=== PATIENT | male | born 1950 | race Caucasian/White ===

== ENCOUNTER 2023-05-17 05:05 | Observation (INO) ==
--- NOTE | 2023-04-06 08:49 | PAT Medication Instructions ---
Medication Instructions Date of Service April 06, 2023 Home Medications amlodipine 5 mg tablet 5 mg PO QAM finasteride 5 mg tablet 5 mg PO QAM ibuprofen 200 mg tablet 800 mg PO Q6H PRN Pain lisinopril 40 mg tablet 40 mg PO QAM simvastatin 20 mg tablet 20 mg PO HS ASK your surgeon for instructions ibuprofen 200 mg tablet 800 mg PO Q6H PRN Pain DO NOT take the morning of surgery lisinopril 40 mg tablet 40 mg PO QAM Take morning of surgery With a small sip of water, OTHERWISE NOTHING TO EAT OR DRINK AFTER MIDNIGHT: amlodipine 5 mg tablet 5 mg PO QAM finasteride 5 mg tablet 5 mg PO QAM Take evening before surgery simvastatin 20 mg tablet 20 mg PO HS Other Notes If you have any questions please call us at [phone] or [phone] or [phone] or [phone]
--- NOTE | 2023-04-15 10:52 | Anesthesiology Consultation ---
Date of Service April 15, 2023 Assessment & Plan (1) Encounter for pre-operative examination: Plan - awaiting PCP pre-op clearance. Optimization form and PAT testing to be faxed to PCP. - anemia and hyponatremia noted. Patient to have pre-op clearance. Patient and surgeon's office made aware. - 3-4 alcoholic drinks daily. - patient reports upcoming planned dental procedure, he and his were made aware they need to further discuss this with surgeon's office prior to having dental procedure. They verbalized understanding and denied questions or concerns. Karen with surgeon's office also made aware. - procaine concern/reaction reported by pt: palpitations in childhood, denies any recurrence. - Outpatient joint assessment: Patient is currently scheduled for inpatient pathway. If re-evaluated pending system levels during current pandemic/surgeon requests outpatient pathway, patient is not recommended candidate for outpatient joint program from anesthesia standpoint. Chart Review Chart Review: Patient seen in Pre Admission Testing Teaching & Discussion Pre-Anesthesia Teaching/Discussion Notes: Instructed NPO after midnight before surgery, except medications with 15 cc of water. Medication instructions provided according to the PAT guidelines. History Surgery Operation Date: 05/17/23 09:20 Proposed Procedures p Right Total Hip Arthroplasty Anterior - Jones Waite, Height/Weight Height: 5 ft 9 in Weight: 84.822 kg Allergies Allergy/AdvReac Type Severity Reaction Status Date / Time procaine AdvReac Mild PALPITATION Verified 04/05/23 07:41 S Medications Home Medications Medication Instructions Recorded Confirmed Last Taken amlodipine 5 mg tablet 5 mg PO QAM 04/05/23 04/05/23 Unknown finasteride 5 mg tablet 5 mg PO QAM 04/05/23 04/05/23 Unknown ibuprofen 200 mg tablet 800 mg PO Q6H PRN Pain 04/05/23 04/05/23 Unknown lisinopril 40 mg tablet 40 mg PO QAM 04/05/23 04/05/23 Unknown simvastatin 20 mg tablet 20 mg PO HS 04/05/23 04/05/23 Unknown Past Medical History Medical History (Updated 04/15/23 @ 10:59 by Yohana Patel PA-C) BPH (benign prostatic hyperplasia) Hyperlipidemia Hypertension controlled, stable per pt Kidney stones hx of > passed on own Lumbar stenosis Patient denies h/o stroke, seizures, heart attack, heart failure, DM, blood clots or blood transfusions. Exercise / Class Metabolic Activity II 4-5 Yardwork/Stairs/Walk up hill (denies chest discomfort or shortness of breath with 1 FOS) Past Surgical History Surgical History (Updated 04/15/23 @ 11:03 by Yohana Patel PA-C) History of appendectomy History of colonoscopy with polypectomy History of lumbar fusion History of tooth extraction History of total hip arthroplasty left History of total knee replacement bilat Past Anesthesia History No Hx of Anesthesia Complications and No Family Hx of Anesthesia Complications History of PONV No Hx of PONV and No Hx of Motion Sickness Social History Smoking Status: Former smoker Do You Dip or Chew Tobacco: No Smoking End Date: 10 yrs ago Hx Alcohol Use: Yes alcohol intake frequency: 3 or more drinks per day Alcohol Intake Frequency Comment: 3-4 beers per day Hx Substance Use: No substance use type: does not use Review of Systems Snoring, denies witnessed apneas. Patient denies chest pain, shortness of breath, dyspnea on exertion, reflux, fever, chills, cough, wheezing, or palpitations. Physical Exam Vital Signs Vitals BP 144/72 P 63 TEMP 98.6 SP02 97% on RA RESP 18 Physical Full cervical extension range of motion without pain TMD 3.5 finger breadths Mallampati Score 2 Dentition: intact, denies chipped or loose teeth, caps/crowns, implants or bridges Lungs: normal respiratory effort. Good air movement, clear throughout to auscultation, no adventitious breath sounds Cardiac: regular rate and rhythm, no murmurs noted Carotid arteries: negative bruit bilat Lab Results Anesthesia Preop Results Results Anesthesia Widget: WBC 7.53 K/ul (4.8-10.8) 04/15/23 Hgb 10.4 g/dl (14.0-18.0) L 04/15/23 Hct 31.7 % (42.0-52.0) L 04/15/23 Plt 307 K/uL (130-400) 04/15/23 Na 129 mmol/L (136-145) L 04/15/23 K 4.3 mmol/L (3.5-5.1) 04/15/23 Cl 97 mmol/L (98-107) L 04/15/23 CO2 25 mmol/L (21-32) 04/15/23 BUN 13 mg/dl (6-23) 04/15/23 Creat 0.68 mg/dl (0.6-1.4) 04/15/23 Glucose Level 98 mg/dl (70-99(Fasting)) 04/15/23 PT 10.4 Seconds (9.0-12.0) 04/15/23 PTT 25.1 Seconds (21.0-31.0) 04/15/23 INR 0.9 (0.9-1.1) 04/15/23 Blood Type A Positive 04/15/23 Antibody Screen NEGATIVE 04/15/23 Testing Electrocardiogram Date: 04/15/23 Sinus rhythm with 1st degree AV block, rate 61 bpm Chest X-Ray Date: 04/15/23 Right lower lung airspace opacity may represent atelectasis, pneumonia, and/or aspiration. COVID-19 Risk Screen Screening Information COVID-19 Screen Date: 04/15/23 Exposure 21 Days Family/Household +COVID Last 21 Days: No Exposure 10 Days Any COVID Exposure Last 10 Days: No Symptoms Last 10 Days Experienced COVID Sx Last 10 Days: No + COVID 0-90 Days COVID + in Last 0-90 Days: No
--- NOTE | 2023-05-13 17:17 | History & Physical Report ---
Date of Service May 13, 2023 Assessment & Plan (1) Osteoarthritis of right hip: We will proceed with a right total hip arthroplasty. Postoperatively he will be started on aspirin for DVT prophylaxis and kept overnight in the hospital for postop medical management. He plans to go to physical therapy in [facility] upon discharge. History of Present Illness Chief Complaint: Osteoarthritis of the right hip. Primary Care Provider: Radha Juarez is a pleasant 72-year-old male who is been doing chronic increasing right hip and groin pain. X-rays and clinical examination been diagnostic for advanced osteoarthritis of the right hip. He has a history of a left hip replacement done by Dr. Aranda. After failing conservative treatment on his ri ght hip, he has elected proceed with a right anterior total of arthroplasty.. Allergies Allergy/AdvReac Type Severity Reaction Status Date / Time procaine AdvReac Mild PALPITATION Verified 04/05/23 07:41 S Home Medications Medication Instructions Recorded Confirmed Type amlodipine 5 mg tablet 5 mg PO QAM 04/05/23 04/05/23 History finasteride 5 mg tablet 5 mg PO QAM 04/05/23 04/05/23 History ibuprofen 200 mg tablet 800 mg PO Q6H PRN Pain 04/05/23 04/05/23 History lisinopril 40 mg tablet 40 mg PO QAM 04/05/23 04/05/23 History simvastatin 20 mg tablet 20 mg PO HS 04/05/23 04/05/23 History Past Med/Surg History Medical History BPH (benign prostatic hyperplasia) Hyperlipidemia Hypertension controlled, stable per pt Kidney stones hx of > passed on own Lumbar stenosis Surgical History History of appendectomy History of colonoscopy with polypectomy History of lumbar fusion History of tooth extraction History of total hip arthroplasty left History of total knee replacement bilat Social History Smoking Status: Former smoker Smoking End Date: 10 yrs ago; Second Hand Exposure: No; Do You Dip or Chew Tobacco: No; Tobacco Cessation Education Requested by Patient: No Hx Alcohol Use: Yes Hx Substance Use: No Preferred Language: Danish Communication Ability: Effective 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 Physical Exam On physical examination the right hip, has decreased range of motion. He has pain with forced internal/external rotation.. Constitutional WD/WN, vitals as above Eyes PERRL, conjunctivae normal, anicteric sclerae ENMT external ear and nose normal, oropharynx normal Neck trachea midline, no thyromegaly Respiratory normal respiratory effort, lungs clear to auscultation Cardiovascular RRR, no murmur, no edema Gastrointestinal (Abdomen) normal bowel sounds, soft, nontender, no hepatosplenomegaly Skin no rashes, warm and dry Psychiatric A+Ox3, euthymic affect Results & Data Results & Data Laboratory Results . Diagnostic Findings X-rays of the right hip show advanced osteoarthritis with joint space narrowing, osteophyte formation, and [id number] articulation. PG Care Time/CCT Total # of Minutes Spent Total Time Spent with Patient: Total time spent is greater than 50% in coordination of care (as documented) at patient's floor/unit and/or counseling patient: Coding Level of Care Code None Diagnoses Osteoarthritis of right hip M16.11
[2023-05-17 05:54] LABS: BUN Creatinine Ratio 17.1 (10-20); Calcium 9.5 mg/dl (8.6-10.3); Creatinine Clr Calc Pharmacy 92.8 ml/min; Est GFR (African American) 104.2 ml/min; Est GFR (Non-African American) 89.9 ml/min; Potassium 4.3 mmol/L (3.5-5.1)
[2023-05-17] MEDS ORDERED: dexAMETHasone 4 MG TAB PO SCH (06:00)
[2023-05-17] MEDS ORDERED: ceFAZolin 2000MG 2,000 MG/15 ML SYR IV SCH (06:00)
[2023-05-17] MEDS ORDERED: FAMOTIDINE 20 MG TAB PO SCH (06:00)
[2023-05-17] MEDS ORDERED: LR 60ML/HR IV SCH (06:00)
[2023-05-17] MEDS ORDERED: GABAPENTIN 300 MG CAP PO SCH (06:00)
[2023-05-17] MEDS ORDERED: TRANEXAMIC ACID 1,000 MG **IV Intra-op IV SCH (06:00)
[2023-05-17] MEDS ORDERED: ACETAMINOPHEN 500 MG TAB PO SCH (06:00)
[2023-05-17] MEDS ORDERED: ORTHO JOINT MIX INFIL SCH (06:00)
[2023-05-17] MEDS ORDERED: TRANEXAMIC ACID 1,000 MG **IV Pre-op IV SCH (06:00)
[2023-05-17] MEDS ORDERED: ROPIVACAINE 0.5% 5 MG/ML 30 ML VIAL ONE (06:17)
[2023-05-17] MEDS ORDERED: fentaNYL citrate PF 100 MCG/2 ML VIAL ONE ×2 (06:39→08:08)
[2023-05-17] MEDS ORDERED: MIDAZOLAM HCL 1 MG/ML 2ML VIAL ONE (06:39)
[2023-05-17] MEDS ORDERED: PROPOFOL IV EMULSION 10 MG/ML 20 ML VIAL IV ONE ×2 (06:39→09:15)
[2023-05-17] MEDS ORDERED: LIDOCAINE 2% 2 ML VIAL/AMP(20MG/ML) INFIL ONE (06:39)
[2023-05-17] MEDS ORDERED: ePHEDrine sulfate 50 MG/ML AMP IV PRN (06:43)
[2023-05-17] MEDS ORDERED: ONDANSETRON INJ 2 MG/ML 2 ML VIAL IV PRN ×2 (06:43→10:01)
[2023-05-17] MEDS ORDERED: HYDROmorphone INJ 2 MG/ML SYR/VIAL IV PRN (06:43)
[2023-05-17] MEDS ORDERED: ATROPINE SULFATE 0.1 MG/ML 10ML SYR IV PRN (06:43)
[2023-05-17] MEDS ORDERED: fentaNYL citrate PF 100 MCG/2 ML VIAL IV PRN (06:43)
--- NOTE | 2023-05-17 06:52 | History & Physical Bridge Note ---
Date of Service May 17, 2023 History & Physical Bridge Note I have examined the patient, reviewed the History & Physical and in the interval since the performance of the History & Physical I have noted the following changes of clinical significance: no changes noted
[2023-05-17] MEDS ORDERED: ORTHO JOINT ANESTHETIC ONE (07:01)
[2023-05-17] MEDS ORDERED: KETAMINE 50 MG/5 ML SYRINGE ONE (07:17)
[2023-05-17] MEDS ORDERED: LIDOCAINE 1%/EPINEPHRINE 1:100,000 20 ML VIAL ONE (07:27)
--- NOTE | 2023-05-17 08:45 | Operative Report ---
PG Post Operative Report Pre & Post Diagnosis Operation Date: 05/17/23 07:00 Pre-Op Diagnosis: Osteoarthritis of right hip Post-Op Diagnosis: Osteoarthritis of right hip I identified the patient and participated in the time-out.: Yes Procedure Operation Date: 05/17/23 07:00 Actual Procedures p Right Anterior Total Hip Arthroplasty(Right) - Jones Waite DO Surgeon Jones Waite DO Branch Service Associate Jones Wolf PA-C Estimated Blood Loss 300 Findings Consistent with Post-Op Diagnosis Specimens Right femoral head Description of Procedure Implants used I used a ZimmerBiomet total hip arthroplasty system with a size 4 high offset Avenir Complete stem, a 54 mm G7 cup with a 25mm screw, an E1 polyethylene liner, a 40 mm ceramic head with a -3.5 neck. Larry arrived at the hospital for the above procedure. He was seen in the preoperative holding area and the operative extremity was identified and signed. He was given a spinal anesthetic, a preoperative antibiotic, and TXA. He was then taken back to the operating room and laid on the table in the supine position. He was given basic sedation. The operative leg was secured to a Puristst leg positioner. The hip was then prepped and draped in sterile fashion. A timeout was done and the patient and the operative extremity was properly identified. An anterior approach was used. Dissection was taken down through the fascia and the tensor muscle belly was retracted laterally and the rectus was retracted medially. The circumflex vessels were identified and ligated. The capsule was then incised and tagged for later repair. The femoral neck was then cut and the femoral head was removed. The acetabulum was exposed. Time was spent doing a complete circumferential labral release. Sequential reaming of the acetabulum up to a size 53 reamer was done. Final reamings were done under fluoroscopy to ensure appropriate version. A Biomet 54 mm G7 cup was then impacted into place. A single 25 mm screw was placed. The E1 polyethylene liner was then snapped into place. Surrounding soft tissues were then injected with 100 cc of an orthopedic pain control cocktail. The proximal femur was then exposed. Sequential broaching up to a size 4 broach was done. Off that broach a size 40 head with a -3.5 neck was trialed. The hip was reduced and fluoroscopic images showed anatomic alignment of the implants in acceptable length. The broach was removed. The final size 4 high offset Avenir Complete stem was then impacted into place. A ceramic 40 mm head with a -3.5 neck was then impacted onto the stem and the hip was reduced. Final fluoroscopic images showed anatomic alignment of the hip. The capsule was then closed with #1 Vicryl suture. A dilute betadyne lavage was then done for 3 minutes. The joint was then irrigated with normal saline solution. The fascia was closed with #1 PDS suture. Skin was closed with 2-0 Vicryl, dao, and a Silverlon dressing. He was then transferred to a hospital bed and taken to the post anesthesia care unit in stable condition. He tolerated the procedure well. Jones Wolf PA-C, was present for the entire procedure. He was critical for patient positioning, prepping, draping, retraction exposure, wound closure and application of sterile dressing. I attest to the content of the Intraoperative Record and any orders documented therein. Any exceptions are noted below.
--- NOTE | 2023-05-17 09:36 | Fluoroscopy Report ---
FL hip RT 1V CLINICAL HISTORY: RIGHT ANTERIOR HIP COMPARISON STUDY: Right hip radiographs January 28, 2023. FLUOROSCOPY TIME: 20 seconds. Ka, r: 2.6217 mGy FLUOROSCOPIC IMAGES: 1 FINDINGS: Fluoroscopy was provided during anterior total right hip arthroplasty. Hardware is intact. No fracture is identified by fluoroscopy. No unexpected radiopaque foreign bodies. IMPRESSION: Fluoroscopy provided during anterior total right hip arthroplasty. ACT 112: Negative or not required by law. Electronically signed by: Frank Rivera M.D. 05/17/2023 9:34 AM
--- NOTE | 2023-05-17 09:58 | XRay Report ---
XR hip 1V RT w pelvis CLINICAL HISTORY: Postoperative evaluation. COMPARISON: Right hip radiographs January 28, 2023. FINDINGS: Alignment of the total right hip arthroplasty is anatomic. There is no unexpected radiopaq ue foreign body. A lucency projects over the superior aspect of the greater trochanter. Skin dao are noted. Left arthroplasty is unchanged in appearance. IMPRESSION: 1. Status post total right hip arthroplasty. Hardware intact. No unexpected radiopaque bodies. 2. Lucency within the superior aspect of the greater trochanter with a small bone fragment. This may reflect expected postoperative change however could be correlated with surgical technique. ACT 112: Negative or not required by law. Electronically signed by: Frank Rivera M.D. 05/17/2023 9:57 AM
[2023-05-17] MEDS ORDERED: NALOXONE HCL 0.4 MG/1 ML VIAL/CARP IV PRN (10:01)
[2023-05-17] MEDS ORDERED: METOCLOPRAMIDE HCL INJ 5 MG/ML 2 ML VIAL IV PRN (10:01)
[2023-05-17] MEDS ORDERED: MAGNESIUM HYDROXIDE SUSP 30 ML UDC PO PRN (10:01)
[2023-05-17] MEDS ORDERED: HYDROmorphone INJ 0.5 MG/0.5 ML SYR IV PRN (10:01)
[2023-05-17] MEDS ORDERED: oxyCODONE HCL IR 5 MG TAB (IMMEDIATE RELEASE) PO PRN (10:01)
[2023-05-17] MEDS ORDERED: bisacodyL 10 MG SUPP PR PRN (10:01)
--- NOTE | 2023-05-17 10:10 | Anesthesiology Progress Note ---
Date of Service May 17, 2023 Anesthesia Post Procedure Vital Signs Vital Signs: Temp Pulse Pulse Resp BP Pulse Ox O2 Del Method 05/17/23 10:00 36.4 C L 72 16 151/73 H 98 Room Air 05/17/23 09:40 36.5 C 70 14 132/66 99 Room Air 05/17/23 09:30 72 16 132/66 100 Oxymask 05/17/23 09:20 73 14 132/70 100 Oxymask 05/17/23 09:10 36.5 C 78 16 122/61 98 Oxymask 05/17/23 05:37 37.0 C 70 18 153/88 H 97 Room Air O2 Flow Rate 05/17/23 10:00 05/17/23 09:40 05/17/23 09:30 3 05/17/23 09:20 4 05/17/23 09:10 5 05/17/23 05:37 Pain Intensity Right Hip: Pain Intensity: 0 Transfer of Care Handoff Completed per policy Notes Mental Status: alert / awake / arousable and participated in evaluation Nausea / Vomiting: adequately controlled Pain: adequately controlled Airway Patency, RR, SpO2: stable & adequate BP & HR: stable & adequate Hydration State: stable & adequate Neuraxial Anesthesia: was administered and sensory block is resolving Anesthetic Complications: no major complications apparent and Pt Satisfied with anesthetic care
[2023-05-17] MEDS: SODIUM CHLORIDE 0.9% 1000ML 1,000 ML IV SCH ×2 (12:19→22:02)
[2023-05-17] MEDS: KETOROLAC TROMETHAMINE 15 MG/ML VIAL IV SCH ×2 (12:20→17:21)
[2023-05-17] MEDS: ceFAZolin 2000MG 2,000 MG/15 ML SYR IV SCH (13:44)
[2023-05-17] MEDS: ACETAMINOPHEN 500 MG TAB PO SCH ×2 (13:45→21:33)
[2023-05-17] MEDS ORDERED: SENNA 8.6 MG TAB PO SCH (21:00)
[2023-05-17] MEDS ORDERED: SIMVASTATIN 20 MG TAB PO SCH (21:00)
[2023-05-17] MEDS: ASPIRIN 81 MG ECTAB PO SCH (21:32)
[2023-05-17] MEDS: DOCUSATE SODIUM 100 MG CAP PO SCH (21:32)
[2023-05-18] MEDS: KETOROLAC TROMETHAMINE 15 MG/ML VIAL IV SCH ×3 (00:09→10:09)
[2023-05-18] MEDS: ceFAZolin 2000MG 2,000 MG/15 ML SYR IV SCH (00:10)
[2023-05-18] MEDS: ACETAMINOPHEN 500 MG TAB PO SCH (05:09)
[2023-05-18] MEDS: ASPIRIN 81 MG ECTAB PO SCH (07:29)
[2023-05-18] MEDS: DOCUSATE SODIUM 100 MG CAP PO SCH (07:30)
[2023-05-18] MEDS ORDERED: dexAMETHasone 4 MG TAB PO SCH (08:00)
--- NOTE | 2023-05-18 08:23 | Orthopedic Progress Note ---
Date of Service May 18, 2023 Assessment & Plan (1) Status post right hip replacement: Overall he is doing very well. He is not having much pain in the right hip. He will be seen by physical therapy today for ambulation and range of motion exercises. He is on aspirin for DVT prophylaxis. He can be discharged home later today. He will follow-up with orthopedics in 2 weeks. Prashanth Juarez was seen and examined at bedside this morning. Overall he is doing very well. He is not having much pain in the right hip. He has been up and ambulating. He has no complaints.. Review of Systems All systems reviewed & are unremarkable except as noted in HPI & below. Physical Exam On physical examination of the right hip, the dressing is clean and dry. His leg is out full extension. He has active dorsiflexion plantarflexion of his right ankle.. Results & Data Results & Data Laboratory Results . Diagnostic Findings Postoperative x-rays of the right hip show the prosthesis to be in anatomic alignment without any evidence of fracture, dislocation, or loosening.. PG Care Time/CCT Total # of Minutes Spent Total Time Spent with Patient: Total time spent is greater than 50% in coordination of care (as documented) at patient's floor/unit and/or counseling patient: Coding Level of Care Code 82006 Post Operative Follow-Up Diagnoses Status post right hip replacement Z96.641
--- NOTE | 2023-05-18 08:24 | Discharge Summary ---
Date of Service May 18, 2023 Admission HPI (Per Admitting) Larry is a pleasant 72-year-old male who is been doing chronic increasing right hip and groin pain. X-rays and clinical examination been diagnostic for advanced osteoarthritis of the right hip. He has a history of a left hip replacement done by Dr. Aranda. After failing conservative treatment on his right hip, he has elected proceed with a right anterior total of arthroplasty.. Admission Exam (Per Admitting) On physical examination the right hip, has decreased range of motion. He has pain with forced internal/external rotation.. Principal Diagnosis Same as "Discharge Diagnosis" noted below under Discharge Instructions. Discharge Exam On physical examination of the right hip, the dressing is clean and dry. His leg is out full extension. He has active dorsiflexion plantarflexion of his right ankle.. Discharge Data Procedures Performed Operation Date: 05/17/23 07:00 Actual Procedures p Right Anterior Total Hip Arthroplasty(Right) - Jones Waite DO Ordered Studies 05/17/23 07:00 FL hip RT 1V Routine Hospital Course (1) Status post right hip replacement: On May 17, 2023 Larry arrived at [facility] and underwent a right hip replaced without complication. He had a spinal anesthetic. Postoperatively he was started on aspirin for DVT prophylaxis and transferred to the general orthopedic floors. His hospital course was uneventful. On postop day #1, his vital signs were stable and his pain was well controlled. He was able to participate well with physical therapy doing ambulation and range of motion exercises. He was then discharged home. He will follow-up with orthopedics in 2 weeks. PG Care Time/CCT Total # of Minutes Spent Total Time Spent with Patient: Total time spent is greater than 50% in coordination of care (as documented) at patient's floor/unit and/or counseling patient: Discharge Plan Discharge Items Patient Disposition: Home - Home Health Services Reason For Visit: Degenerative Joint Dengerative Right Hip Discharge Diagnosis: Right hip replacement Activity: Per Instructions section Non-emergency contact: Surgeon Call non-emergency contact if: your wound has increased redness and your wound has increased drainage Follow-up/Referrals: Radha Cruz PA-C [Primary Care Provider] - Diet: Regular Addtl Attending Provider Instructions: Activity and Therapy Recommendations: * If you are using [facility] then therapy will be provided at your home until they feel you have accomplished all of your goals. * If you are using [facility] then Physical Therapy will be provided until they feel you are ready to start Outpatient Physical Therapy. * If you are not using home therapy then Outpatient Physical Therapy should start about 3-5 days from your day of surgery. Therapy will last about 6-10 weeks * You were shown a series of exercises in the hospital. Do these exercises three times each day including the exercises you were shown in physical therapy. * Get up and walk several times each day.~ For the first four weeks, try not to stand or walk for more than one hour at a time. If you do stand or walk for more than one hour, you will not hurt anything, but your leg will likely swell.~~ * As you feel comfortable, you may change from the walker or crutches to a cane and~then to independent walking. Medications: * Narcotic You will likely be sent home from the hospital with a prescription for the narcotic pain medication that worked best throughout your stay. * Aspirin Most patients will be required to take Aspirin 81mg twice a day for 6 weeks after surgery. This is obtained [id number] and a prescription is not necessary. * Other medications may be prescribed for specific circumstances. If you have any questions, please call the office at . * Resume previous home medications unless otherwise instructed TEDs/Elastic Stockings: The white elastic stockings help limit swelling and prevent blood clots from forming in your legs. The more you wear them, the more they work. Wear them for six weeks. Dressing Care: Leave the Silverlon dressing in place for 7 days. After 7 days you may remove the dressing. If the incision is not draining then you may leave the dao open to air. If there is a little bit of drainage or if the dao are getting stuck on your clothing then cover the incision with a dry dressing. The dao will be removed at your 2 week follow-up appointment. Showering: You may shower with the Silverlon dressing in place. Do not let the shower spray hit the dressing directly. Pat the Silverlon dressing dry. If the dressing becomes wet underneath, then simply remove the dressing. Keep the incision dry until you are 7 days out from the day of surgery. After 7 days you may remove the Silverlon dressing and shower with the dao exposed. Let soapy water run over the dao and pat them dry. Do not scrub or soak the incision. Things To Watch For: * Drainage from the incision site that occurs more than one week after your surgery. * Increased redness at the incision site. * Fever above 102 degrees Fahrenheit. * Unusual chest pain or shortness of breath. * Call [facility] at with any of the above problems Follow-Up Visit: Follow-up with Dr. Waite's PA (Jones Wolf) 2-3 weeks after your day of surgery. He will remove your dao and answer any questions. If you have any additional questions or concerns, Dr Waite is usually in the office at the same time and will be available An appointment was probably scheduled when you signed-up for surgery in the office. If you have any questions call Office Instructions: More detailed instructions as well as Frequently Asked Questions were provided in a folder by our office when you signed-up for surgery. Please review these instructions when you get home. If you have any further questions or concerns, please feel free to call the office at [phone] Pending Studies at Discharge: No Stand-Alone Forms: [facility], Smoking Cessation Medications and DC Order Prescriptions: New aspirin 81 mg Tablet,Delayed Release (Dr/Ec) 81 mg PO BID 42 Days Qty: 0 0RF Continued amlodipine 5 mg Tablet 5 mg PO QAM simvastatin 20 mg Tablet 20 mg PO HS lisinopril 40 mg Tablet 40 mg PO QAM finasteride 5 mg Tablet 5 mg PO QAM ibuprofen 200 mg Tablet 800 mg PO Q6H PRN (Reason: Pain) Admission Data Admit Date/Time: 05/17/23 09:09 Attending Provider: Jones Waite Admit Provider: Jones Waite Primary Care Provider: Radha Cruz
[2023-05-18] MEDS ORDERED: lisinopril 40 MG TAB PO SCH (09:00)
[2023-05-18] MEDS ORDERED: FINASTERIDE 5 MG TAB PO SCH (09:00)
[2023-05-18] MEDS ORDERED: amLODIPine BESYLATE 5 MG TAB PO SCH (09:00)
[2023-05-18] MEDS ORDERED: MULTIVITAMIN TAB PO SCH (09:00)
== END 2023-05-18 10:53 | disposition home health service (06) ==
LOC: ASU 05:05 → 3E 05:05